=== PATIENT | male | born 1945 | race Caucasian/White ===

== ENCOUNTER 2017-04-05 06:39 | Day surgery (SDC) | payer OTHER ==
[2013-08-01 11:52] VITALS: BMI 25.8
[2017-04-05] MEDS ORDERED: LIDOCAINE 1% 20 ML MDV ID ONE (07:49)
[2017-04-05] MEDS ORDERED: DIPRIVAN 20 ML VIAL IVP ONE (09:35)
[2017-04-05] MEDS ORDERED: VERSED ONE (09:35)
[2017-04-05 14:43] VITALS: BP 119/77; TEMP 97.2
--- NOTE | 2017-04-06 11:57 | OP ---
PROCEDURE: COLONOSCOPY TO THE CECUM WITH SNARE POLYPECTOMY. ENDOSCOPIST: Jaya PEREZ M.D. INDICATION: HISTORY OF POLYPS, LAST EXAM IN 2011. INSTRUMENT: [employer]-[id number]. MEDICATION: PER ANESTHESIA. PROCEDURE: The patient was positioned for colonoscopy. The digital rectal exam was negative. The colonoscope was inserted through the anus and advanced to the cecum. The cecum was identified using the ileocecal valve and the appendiceal orifice as landmarks. The scope was slowly withdrawn through an adequately prepped colon. Careful examination is made of each colonic segment as the scope is withdrawn in a circumferential fashion. A small polyp at 70 cm is removed using cold snare polypectomy. A small polyp in the rectum removed using cold snare polypectomy. 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 Hemorrhoids are also noted. The scope was retroflexed and withdrawn. Withdrawal time 10 minutes and 48 seconds. PLAN: 1. Review pathology. 2. Repeat colonoscopy in 5 years. 3. Again resume his Plavix today. CC: DR. DEJA MONK
== END 2017-04-05 09:38 | disposition home or self-care (01) ==
LOC: SURG 06:39
PROVIDERS: ATTEND Internal Medicine Gastroenterology
DX: Z09 Encounter for follow-up examination after completed treatment for conditions other than malignant neoplasm (principal); Z86.010 Personal history of colon polyps; D12.4 Benign neoplasm of descending colon; D12.7 Benign neoplasm of rectosigmoid junction; K57.30 Diverticulosis of large intestine without perforation or abscess without bleeding; K62.7 Radiation proctitis; K64.9 Unspecified hemorrhoids; E11.9 Type 2 diabetes mellitus without complications
CPT/HCPCS: 82962

== ENCOUNTER 2018-09-01 09:08 | Outpatient (CLI) | payer OTHER ==
[2013-08-01 11:52] VITALS: BMI 25.8
--- NOTE | 2018-09-01 09:45 | US ---
EXAM: Right upper quadrant abdominal ultrasound. History: Elevated liver enzymes. Technique: Multiple sonographic images through the abdomen were obtained. Color duplex Doppler was used to interrogate vascular flow. Findings: The liver is not enlarged according to the sonographic measurement given. The liver is diffusely ech ogenic. 1.3 cm x 0.6 cm x 0.6 cm hypoechoic area within the liver adjacent to the gallbladder fossa. There is antegrade flow within the main portal vein. No abdominal ascites. No shadowing gallstone s. Gallbladder wall is not thickened. Common bile duct measures 0.5 cm in caliber. Limited visuali zation of the right kidney demonstrates no evidence for hydronephrosis. Impression: 1. No acute sonographic findings. 2. Hepatic steatosis. 3. Probable focal fatty sparing within the liver near the gallbladder fossa.
== END 2018-09-01 09:09 | disposition home or self-care (01) ==
LOC: RAD 09:08
PROVIDERS: ATTEND Family Medicine
DX: R74.8 Abnormal levels of other serum enzymes (principal)